=== PATIENT | female | born 1965 | race Caucasian/White ===

== ENCOUNTER 2018-01-11 18:47 | Emergency (ER) | payer OTHER ==
[2018-01-11] MEDS: predniSONE 20 MG TAB PO (20:19)
[2018-01-11] MEDS: HYDROCODONE/APAP (5/325) TAB PO (20:21)
== END 2018-01-11 22:11 | disposition home or self-care (01) ==
LOC: FTE 22:11
DX: M75.92 Shoulder lesion, unspecified, left shoulder (principal); E11.9 Type 2 diabetes mellitus without complications
CPT/HCPCS: 73030; 82962; 93005; 99284-25